=== PATIENT | female | born 1955 | race Caucasian/White ===

== ENCOUNTER 2016-08-15 14:05 | Emergency (ER) | payer MEDICARE, MEDICAID ==
[~2016-08-15] VITALS: Ht 157.5 cm; Wt 67.0 kg
[~2016-08-15 14:05] MED LIST: ABIL15TA2 PO; BACT800T5 PO; CYMB60CA PO
[2016-08-15 14:19] VITALS: BP 154/92; PULSE 69; RESP 18; TEMP 97.8; O2SAT 100
[2016-08-15] MEDS ORDERED: CYMB60CA PO (14:49)
[2016-08-15] MEDS ORDERED: ARIP1TAB5 PO (14:49)
[2016-08-15] MEDS ORDERED: ADDE20 PO (14:49)
[2016-08-15] MEDS ORDERED: PRED20 PO ×2 (15:38→16:07)
[2016-08-15] MEDS ORDERED: AZIT250T3 PO ×2 (15:38→16:07)
[2016-08-15] MEDS ORDERED: VENTAER INH ×2 (15:38→16:07)
--- NOTE | 2016-08-15 15:39 | PD ---
HPI Chief Complaint: Cold / Flu Symptoms Time Seen by Provider: 15:15 Travel History International Travel<30 days: No Contact w/Intl Traveler<30days: No Traveled to known affect area: No History of Present Illness HPI 61-year-old female presents to emergency department for evaluation of cough 2 weeks. Patient reports intermittent wheezing with coughing episodes. She reports her symptoms started approximately 2 weeks ago with nasal congestion, sore throat, cough. She reports all symptoms resolved with the exception of the cough. She denies fever, chills, shortness of breath, chest pain, nausea or vomiting. No alleviating factors. Symptoms severity [id number] PFSH Past Medical History Arthritis: Yes (RHEUMATOID) Blood Disorders: No Anxiety: Yes Depression: Yes Cancer: No Cardiovascular Problems: No Diabetes: No Diminished Hearing: No Endocrine: No Gastrointestinal Disorders: Yes Glaucoma: No Genitourinary: No Headaches: Yes Hepatitis: Yes (HEP C) Hiatal Hernia: No Hypertension: Yes Immune Disorder: No Medical other: Yes (HEP C, ARTHRITIS) Psychiatric: No Reproductive: No Respiratory: No Immunizations Current: Yes Thyroid Disease: No Influenza Vaccination: No PNEUMOCCOCAL Vaccine (Year): 2005 ?: Not Menopausal: Yes Past Surgical History Abdominal Surgery: No Cardiac Surgery: No Ear Surgery: No Endocrine Surgery: No Eye Surgery: No Genitourinary Surgery: No Gynecologic Surgery: No Neurologic Surgery: Yes (HYDROCEPALUS 2006 HAD SHUNT PLACED) Oral Surgery: No Pacemaker: No Thoracic Surgery: No Social History Alcohol Use: Yes (OCCASIONAL) Tobacco Use: No Substance Use: No Allergies-Medications (Allergen,Severity, Reaction): Coded Allergies: Cipro (Verified Allergy, Severe, MAKES MY SKIN CRAWL", 08/15/16) Flagyl (Verified Allergy, Severe, MAKES MY SKIN CRAWL", 08/15/16) Reported Meds & Prescriptions Reported Meds & Active Scripts Active Ventolin Hfa 18 GM Inh (Albuterol Sulfate) 90 Mcg/Act Aer 1 Puff INH Q4H PRN Prednisone 20 Mg Tab 40 Mg PO DAILY Take 40 mg (2 tablets) daily for 5 days Azithromycin 250 Mg Tab 250 Mg PO DIRECTED Take 2 tabs (500 mg) on day 1 then 1 tab daily x 4 days. Reported Adderall (Amphetamine-Dextroamphetamine) 20 Mg Tab 20 Mg PO DAILY Avoid late evening doses. Space doses at least 4 to 6 hours if more than once/day dosing. Cymbalta DR (Duloxetine HCl) 60 Mg Capdr 60 Mg PO DAILY Abilify (Aripiprazole) 10 Mg Tab 5 Mg PO DAILY Review of Systems Except as stated in HPI: all other systems reviewed are Neg General / Constitutional: No: Fever Eyes: No: Visual changes HENT: No: Headaches Cardiovascular: No: Chest Pain or Discomfort Respiratory: Positive: Cough Gastrointestinal: No: Abdominal Pain Genitourinary: No: Dysuria Skin: No Rash Neurologic: No: Weakness Physical Exam Narrative GENERAL: Alert, well-appearing female, no acute distress. SKIN: Focused skin assessment warm/dry. HEAD: Atraumatic. Normocephalic. EYES: Pupils equal and round. No scleral icterus. No injection or drainage. ENT: No nasal bleeding or discharge. Mucous membranes pink and moist. NECK: Trachea midline. No JVD. CARDIOVASCULAR: Regular rate and rhythm. No murmur appreciated. RESPIRATORY: No accessory muscle use. Clear to auscultation. Breath sounds equal bilaterally. Mild expiratory wheezes bilaterally. No rales or rhonchi. GASTROINTESTINAL: Abdomen soft, non-tender, nondistended. Hepatic and splenic margins not palpable. MUSCULOSKELETAL: No obvious deformities. No clubbing. No cyanosis. No edema. NEUROLOGICAL: Awake and alert. No obvious cranial nerve deficits. Motor grossly within normal limits. Normal speech. PSYCHIATRIC: Appropriate mood and affect; insight and judgment normal. Data Data Last Documented VS Vital Signs Date Time Temp Pulse Resp B/P Pulse Ox O2 Delivery O2 Flow Rate FiO2 08/15/16 14:19 97.8 69 18 154/92 100 MDM Medical Decision Making Medical Screen Exam Complete: Yes Emergency Medical Condition: Yes Differential Diagnosis Bronchitis, pneumonia, reactive airway, viral URI Narrative Course 61-year-old female with chief complaint cough 2 weeks. She denies fever or chills. Her physical exam is reassuring. She does have expiratory wheezes bilaterally. Patient was offered breathing treatment while here in the ED. Patient declined stated she wanted to spit up her medications and go home. Patient was put on azithromycin, steroids, albuterol inhaler. Instructed to follow up with her primary care physician. She agrees to plan. Return precautions discussed. Diagnosis Primary Impression: Bronchitis Referrals: Primary Care Physician Additional Instructions: Take medications as prescribed. Treatment plenty of fluid and rest. Follow-up with her primary care doctor for recheck in 2 days. Return to the emergency department if he develops new or worsening symptoms such as high fevers, shortness of breath, chest pain. Scripts Albuterol 18 GM Inh (Ventolin Hfa 18 GM Inh)90 Mcg/Act Aer1 Puff INH Q4H PRN ( SHORTNESS OF BREATH) #1 INHALER Ref 0 Prov:Susan Palafox 08/15/16 Prednisone 20 Mg Tab40 Mg PO DAILY #10 TAB Take 40 mg (2 tablets) daily for 5 days Prov:Susan Palafox 08/15/16 Azithromycin 250 Mg Aic969 Mg PO DIRECTED #6 TAB Take 2 tabs (500 mg) on day 1 then 1 tab daily x 4 days. Prov:Susan Palafox 08/15/16 Disposition: 01 DISCHARGE HOME Condition: Stable Susan Palafox Aug 15, 2016 15:39
== END 2016-08-15 16:16 | disposition home or self-care (01) ==
LOC: PHEFT 14:05
DX: J40 Bronchitis, not specified as acute or chronic (principal); I10 Essential (primary) hypertension; Z87.39 Personal history of other diseases of the musculoskeletal system and connective tissue; Z86.59 Personal history of other mental and behavioral disorders; Z87.19 Personal history of other diseases of the digestive system; Z86.19 Personal history of other infectious and parasitic diseases
CPT/HCPCS: 99284

== ENCOUNTER 2017-06-21 13:57 | Emergency (ER) | payer MEDICARE, MEDICAID | END 2017-06-21 15:18 | disposition home or self-care (01) | LOC: PHEFT 13:57 | DX: R05 Cough (principal); R50.9 Fever, unspecified; M06.9 Rheumatoid arthritis, unspecified; F41.9 Anxiety disorder, unspecified; F32.9 Major depressive disorder, single episode, unspecified; I10 Essential (primary) hypertension; Z86.19 Personal history of other infectious and parasitic diseases; Z79.899 Other long term (current) drug therapy; Z88.1 Allergy status to other antibiotic agents | CPT/HCPCS: 99283 ==